=== PATIENT | female | born 1940 | race Two or more races ===

== ENCOUNTER 2020-04-07 19:30 | Emergency (ER) | payer MEDICARE, MEDICAID ==
--- NOTE | 2020-04-07 19:59 | ER Document Report ---
ED Medical Screen (RME) - General Stated Complaint: FATIGUE WITH AMS Time Seen by Provider: 04/07/20 19:59 - HPI Notes: 04/07/20 20:28 79-year-old female with a history of hypertension, diabetes and hypercholesteremia presents to the emergency room via EMS for AMS and fall. Patient states that she fell today and hit her neck and back. Patient is unable to tell me if she lost consciousness at all. EMS did state that she is Covid positive. Patient is denying any chest pain, shortness of breath, nausea, vomiting, diarrhea, abdominal pain. Patient currently is a poor historian as to times when she fell. Patient is a poor historian I have greeted and performed a rapid initial assessment of this patient. A comprehensive ED assessment and evaluation of the patient, analysis of test results and completion of the medical decision making process will be conducted by additional ED providers. PHYSICAL EXAMINATION: GENERAL: Chronically ill, malnourished and in no acute distress. HEAD: Atraumatic, normocephalic. EYES: Pupils equal round extraocular movements intact, conjunctiva are normal. NECK: C-spine tenderness on palpation from C4-C6. CV: s1, s2 regular LUNGS: Diminished breath sounds in lobes The patient was evaluated during a global COVID-19 pandemic and that diagnosis was suspected/considered upon their initial presentation. Their evaluation, treatment and testing was consistent with current guidelines for patients who present with complaints or symptoms and may be related to COVID-19. 04/07/20 20:34 Physical Exam - Vital signs Vitals: Temp Pulse Resp BP Pulse Ox 98.8 F 82 22 H 167/79 H 97 04/07/20 20:08 04/07/20 20:08 04/07/20 20:08 04/07/20 20:08 04/07/20 20:08 Course - Vital Signs Vital signs: Temp Pulse Resp BP Pulse Ox 98.8 F 82 22 H 167/79 H 97 04/07/20 20:08 04/07/20 20:08 04/07/20 20:08 04/07/20 20:08 04/07/20 20:08
--- NOTE | 2020-04-07 20:59 | RADIOLOGY REPORT (SQ) ---
EXAM DESCRIPTION: XR CHEST 1 VIEW COMPLETED DATE/TME: 04/07/2020 20:40 CLINICAL HISTORY: 79 years, Female, COUGH COMPARISON: None. TECHNIQUE: Upright portable chest x-ray FINDINGS: Borderline heart size. Heavily calcified aortic knob. Right upper mediastinal widening probably secondary to brachiocephalic vessels. Outk-gn-uiywkynj hyperinflation.. There is a soft tissue structure projecting the left lower chest medially. Approximately 6 x 4.4 cm. Related to the left breast? Less likely related to the left lateral lung. Otherwise no acute lung or pleural abnormalities. IMPRESSION: 1. Unusual soft tissue structures in the left lower chest possibly related to the breast or the soft tissues and less likely to the lung. Can be evaluated with lateral view. 2. Hyperinflation. Right upper mediastinal widening probably due to great vessels.
--- NOTE | 2020-04-07 21:05 | RADIOLOGY REPORT (SQ) ---
EXAM DESCRIPTION: CT HEAD WITHOUT IV CONTRAST COMPLETED DATE/TME: 04/07/2020 20:46 CLINICAL HISTORY: 79 years, Female, AMS s/p fall today, +neck pain COMPARISON: None. TECHNIQUE: Axial images without IV contrast. Sagittal coronal reconstruction. Images stored on PACS. All CT scanners at this facility use dose modulation, iterative reconstruction, and/or weight based dosing when appropriate to reduce radiation dose to as low as reasonably achievable (ALARA). FINDINGS: Elum-vp-edxjnqmg ventriculomegaly and mild prominence of the cortical sulci. Moderate diffuse periventricular white matter hypodensities in additional multifocal lesions suspicious for old lacunar infarctions. Vascular calcifications. Ectatic distal internal carotid arteries. Paranasal sinuses, mastoid air cells and bony calvarium are unremarkable. IMPRESSION: 1. Relatively advanced periventricular white matter chronic lesions. Probably a central atrophy. Less likely NPH. 2. Ventriculomegaly mildly greater compared to size of the cortical sulci. 3. No acute intracranial findings.
[2020-04-07 21:07] LABS: ABSOLUTE LYMPHOCYTES (AUTO) 0.9 10^3/uL (0.5-4.7); ABSOLUTE MONOCYTES (AUTO) 0.9 10^3/uL (0.1-1.4); ABSOLUTE NEUT (AUTO) 5.6 10^3/uL (1.7-8.2); BASOPHILS % (AUTO) 0.6 % (0-2); EOSINOPHILS % (AUTO) 0.2 % (0-6); HEMATOCRIT 35.7 % (36.0-47.0); HEMOGLOBIN 11.7 g/dL (12.0-15.5); LYMPHOCYTES % (AUTO) 12.7 % (13-45); MEAN CORPUSCULAR HEMOGLOBIN 27.3 pg (27.0-33.4); MEAN CORPUSCULAR HGB CONC 32.7 g/dL (32.0-36.0); MEAN CORPUSCULAR VOLUME 83 fl (80-97); MONOCYTES % (AUTO) 11.7 % (3-13); PLATELET COUNT 266 10^3/uL (150-450); RED BLOOD COUNT 4.28 10^6/uL (3.72-5.28); RED CELL DISTRIBUTION WIDTH 13.3 % (11.5-14.0); SEGMENTED NEUTROPHILS % (AUTO) 74.8 % (42-78); TOTAL CELLS COUNTED % (AUTO) 100 %; WHITE BLOOD COUNT 7.4 10^3/uL (4.0-10.5)
--- NOTE | 2020-04-07 21:11 | RADIOLOGY REPORT (SQ) ---
EXAM DESCRIPTION: CT CERVICAL SPINE WITHOUT IV CONTRAST COMPLETED DATE/TME: 04/07/2020 20:46 CLINICAL HISTORY: 79 years, Female, AMS s/p fall today, +neck pain COMPARISON: None. TECHNIQUE: Axial images without IV contrast. Sagittal coronal reconstruction. Images stored on PACS. All CT scanners at this facility use dose modulation, iterative reconstruction, and/or weight based dosing when appropriate to reduce radiation dose to as low as reasonably achievable (ALARA). FINDINGS: No obvious acute fracture dislocation. No suspicious prevertebral soft tissue swelling. Multiple levels of significant posterior discopathy with posterior osteophyte formation. Inherently wide canal. Moderate central stenosis at C3-4, bxkm-zo-larsomcv at C4-5 C5-C6 on the right and wnub-rr-jcjmzlgu C6-7 centrally. There is unusual of arthrosis at the joint between the left lateral mass of C1 and the left lateral mass of C2. Associated with significant osteophyte formation. Foraminal stenosis at C3-4 bilaterally greater on the left C4-5 bilaterally greater on the right C5-6 and C6-7 on the right. IMPRESSION: 1. Advanced degenerative changes. Multiple levels of central and foraminal stenosis. 2. Unusual degenerative changes involving the left C1-C2 articulation. 3. No obvious acute findings. TECHNICAL DOCUMENTATION: Quality ID # 436: Final reports with documentation of one or more dose reduction techniques (e.g., Automated exposure control, adjustment of the mA and/or kV according to patient size, use of iterative reconstruction technique) copyright 2011 [employer]- All Rights Reserved
[2020-04-07 21:20] LABS: INTERNATIONAL RATION (INR) 0.99; PROTHROMBIN TIME 13.3 SEC (11.4-15.4)
[2020-04-07 21:27] LABS: ALBUMIN 3.7 g/dL (3.5-5.0); ALKALINE PHOSPHATASE 81 U/L (38-126); ANION GAP 7 (5-19); ASPARTATE AMINO TRANSFERASE 26 U/L (14-36); BILIRUBIN,DIRECT 0.1 mg/dL (0.0-0.4); BILIRUBIN,TOTAL 0.8 mg/dL (0.2-1.3); BLOOD UREA NITROGEN 9 mg/dL (7-20); CARBON DIOXIDE 27 mmol/L (22-30); CHLORIDE 98 mmol/L (98-107); GLUCOSE 184 mg/dL (75-110); POTASSIUM 3.7 mmol/L (3.6-5.0); TOTAL PROTEIN 6.9 g/dL (6.3-8.2)
--- NOTE | 2020-04-07 21:29 | ER Document Report ---
ED General - General Stated Complaint: FATIGUE WITH AMS Time Seen by Provider: 04/07/20 19:59 Primary Care Provider: LETY SIERRA PA-C [Primary Care Provider] - Follow up as needed - [facility] Notes: 79-year-old female presents via EMS from home. Per the notes, there is concerned she had altered mental status and fever, she was found to be Covid positive via EMS swab. Patient states that she is here because "they say I have Covid". States that she believes that her daughter also has Covid. Patient reports a cough, no shortness of breath. There is also reference that the patient had a fall today. Patient states that she was attempting to sit down, she missed the seat and fell backwards. She states that she did not lose consciousness. She currently complains of some neck pain. - Related Data Allergies/Adverse Reactions: No Known Allergies Allergy (Unverified 04/07/20 21:53) Past Medical History - General Information source: Patient - Social History Smoking Status: Unknown if Ever Smoked Family History: Reviewed & Not Pertinent Review of Systems - Review of Systems Constitutional: Fever EENT: No symptoms reported Cardiovascular: denies: Chest pain Respiratory: Cough. denies: Short of breath Gastrointestinal: denies: Abdominal pain Genitourinary: No symptoms reported Female Genitourinary: No symptoms reported Musculoskeletal: Neck pain Skin: No symptoms reported Hematologic/Lymphatic: No symptoms reported Neurological/Psychological: denies: Headaches Physical Exam - Vital signs Vitals: BP Pulse Ox 167/79 H 97 04/07/20 19:49 04/07/20 19:49 - General General appearance: Appears well, Alert In distress: None - HEENT Head: Normocephalic, Atraumatic Extraocular movements intact: Yes Pupils: PERRL Neck: Other - No midline tenderness. Full range of motion. - Respiratory Chest status: Nontender Breath sounds: Normal - Cardiovascular Rhythm: Regular Heart sounds: Normal auscultation - Abdominal Tenderness: Nontender - Extremities General upper extremity: Nontender, Normal ROM General lower extremity: Nontender, Normal ROM - Neurological Neuro grossly intact: Yes Speech: Normal Cranial nerves: Normal Motor strength normal: LUE, RUE, LLE, RLE Sensory: Normal Course - Re-evaluation Re-evalutation: 39-year-old female arrives from home via EMS, concerns for fever/altered mental status, positive Covid swab. On exam patient is alert and able to answer questions, she states that she is where she is Covid positive and believe that her daughter is. Other than the cough, she otherwise denies any complaints. She has some neck pain. She has full range of motion of her neck, no midline tenderness. She has no gross focal neuro deficits. Lungs are clear, she is hemodynamically stable and afebrile. Labs and imaging ordered through the triage process. No leukocytosis or left shift. Mild anemia. Electrolytes okay. No elevation of creatinine. LFTs within normal limits. Troponin negative. No consolidation on chest x-ray. Head CT is negative for bleed. C- spine CT is negative for fracture. Do not find any other areas of tenderness on exam. 04/07/20 22:26 Called patient's daughter Radhika who is listed in the emergency contacts. I updated her on positive Covid and reason for EMS transfer today, patient handling Covid infection fairly well. Patient's daughter discusses that patient currently lives in a very unsafe environment. Patient's other daughter is a known drug addict, apparently has been in the ED multiple times for overdoses. Patient's other daughter is unable to care for the patient. There have been multiple instances where the patient has been left alone at home, she has burned herself while cooking, she does not take her medications as prescribed. Patient reportedly refuses to leave the house to go live with Radhika. Avril has filed a DCS/APS case, she has filed with [facility]. On this Radhika was going to go to the patient's primary care doctor to start the paperwork to declare the patient incompetent as this will hopefully be a way to remove patient from the home. Radhika is unable to come get her mother shan because she is a school transportation director and it cannot be exposed to Covid. I discussed with her that currently she does not meet admission criteria for Covid, however we will keep her overnight as a social hold so that social work may see her in the morning to find a safe disposition for this patient. Home medications along with vitamin C/vitamin D/zinc ordered. - Vital Signs Vital signs: Temp Pulse Resp BP Pulse Ox 98.8 F 82 20 160/77 H 96 04/07/20 20:08 04/07/20 20:08 04/07/20 21:00 04/07/20 21:00 04/07/20 21:00 - Laboratory Results Result Diagrams: 04/07/20 20:54 04/07/20 20:54 Laboratory Results Interpreted: 04/07/20 04/07/20 04/07/20 20:54 20:54 22:40 Hgb 11.7 L Hct 35.7 L Lymph % (Auto) 12.7 L Sodium 132.2 L Creatinine 0.45 L Glucose 184 H SARS-CoV-2 Rap RNA(RT-PCR) POSITIVE H Critical Laboratory Results Reviewed: No Critical Results - Radiology Results Critical Radiology Results Reviewed: No Critical Results - EKG Interpretation by Me Additional EKG results interpreted by me: EKG is interpreted by me. Sinus rhythm, rate 80. Narrow QRS, QTC within normal limits. Nonspecific ST changes. No STEMI. Discharge - Discharge Clinical Impression: COVID-19 virus infection, Family discord Disposition: OTHER Referrals: LETY SIERRA PA-C [Primary Care Provider] - Follow up as needed
[2020-04-07] MEDS ORDERED: KETOROLAC TROMETHAMINE INJ/PF 30 MG/1 ML SDV IV ONE (21:46)
--- NOTE | 2020-04-07 23:38 | EKG REPORT ---
SEVERITY:- BORDERLINE ECG - SINUS RHYTHM PROBABLE LEFT ATRIAL ABNORMALITY BORDERLINE T ABNORMALITIES, INFERIOR LEADS : Confirmed by: Vicky Alaniz MD 07-Apr-2020 23:38:11
[2020-04-07] MEDS: PROPRANOLOL HCL 20 MG TABLET PO SCH (23:39)
[2020-04-07] MEDS: ATORVASTATIN CALCIUM 40 MG TABLET PO SCH (23:41)
[2020-04-08] MEDS ORDERED: ACETAMINOPHEN 325 MG TABLET PO PRN (03:48)
[2020-04-08] MEDS: ASPIRIN 81 MG TABLET, ENT COATED PO SCH (11:03)
[2020-04-08] MEDS: AMLODIPINE BESYLATE 5 MG TABLET PO SCH (11:03)
[2020-04-08] MEDS: SITAGLIPTIN PHOSPHATE 50 MG TABLET PO SCH (11:03)
[2020-04-08] MEDS: CHOLECALCIFEROL (D3) 1,000 UNIT (25 MCG) TABLET PO SCH (11:04)
[2020-04-08] MEDS: ASCORBIC ACID 500 MG TABLET PO SCH ×2 (11:04→18:17)
[2020-04-08] MEDS: ZINC SULFATE 220 MG CAPSULE PO SCH (11:04)
--- NOTE | 2020-04-08 13:29 | RADIOLOGY REPORT (SQ) ---
EXAM DESCRIPTION: CHEST SINGLE VIEW IMAGES COMPLETED DATE/TIME: 04/08/2020 1:11 pm REASON FOR STUDY: ams COMPARISON: 04/07/2020. EXAM PARAMETERS: NUMBER OF VIEWS: One view. TECHNIQUE: Single frontal radiographic view of the chest acquired. RADIATION DOSE: NA LIMITATIONS: None. FINDINGS: LUNGS AND PLEURA: No opacities, masses or pneumothorax. No pleural effusion. MEDIASTINUM AND HILAR STRUCTURES: Right paratracheal fullness unchanged. HEART AND VASCULAR STRUCTURES: Heart normal in size. Normal vasculature. BONES: No acute findings. HARDWARE: None in the chest. OTHER: No other significant finding. IMPRESSION: RIGHT PARATRACHEAL FULLNESS, PRESUMABLY DUE TO OVERLAPPING BLOOD VESSELS. NO ACUTE RADI OGRAPHIC FINDING IN THE CHEST. TECHNICAL DOCUMENTATION: JOB ID: [id number] [employer]- All Rights Reserved Reading location - IP/workstation name: [email or web address]
[2020-04-08 14:21] LABS: ARTERIAL BLOOD H2CO3 1.23 mmol/L (1.05-1.35); ARTERIAL BLOOD PCO2 40.7 mmHg (35-45); ARTERIAL BLOOD PH 7.47 (7.35-7.45); ARTERIAL BLOOD PO2 59.8 mmHg (80-100)
[2020-04-08 14:22] LABS: APPEARANCE,URINE CLEAR; BILIRUBIN,URINE NEGATIVE (NEGATIVE); COLOR,URINE YELLOW; GLUCOSE, URINE NEGATIVE (NEGATIVE); KETONES,URINE NEGATIVE (NEGATIVE); LEUKOCYTE ESTERASE,URINE NEGATIVE (NEGATIVE); NITRITE,URINE NEGATIVE (NEGATIVE); PROTEIN,URINE 30 mg/dL (NEGATIVE); URINE SPECIFIC GRAVITY 1.015; UROBILINOGEN,URINE NEGATIVE mg/dL (<2.0)
[2020-04-08 14:22] LABS: ARTERIAL BLOOD BASE EXCESS 4.8 mmol/L; ARTERIAL BLOOD FIO2 ROOM AIR; ARTERIAL BLOOD HCO3 28.8 mmol/L (20-24); ARTERIAL BLOOD O2 SATURATION 92.3 % (94-98); ARTERIAL BLOOD TOTAL CO2 30.1 mmol/L (21-25)
--- NOTE | 2020-04-08 15:06 | RADIOLOGY REPORT (SQ) ---
EXAM DESCRIPTION: MRI HEAD WITHOUT IMAGES COMPLETED DATE/TIME: 04/08/2020 2:45 pm REASON FOR STUDY: ms changes COMPARISON: None. TECHNIQUE: Multiplanar imaging includes non-contrasted T1, T2, FLAIR, and diffusion with ADC map seq uences. Images stored on PACS. LIMITATIONS: Motion artifact. FINDINGS: ANATOMY: No anomalies. Normal vascular flow voids. Pituitary fossa normal. CSF SPACES: Atrophy induced prominence of ventricles and CSF spaces. CEREBRUM: High signal intensity lesions scattered throughout the white matter on FLAIR imaging with d istribution suggesting micro-vascular ischemic changes. No evidence of hemorrhage, mass, or extraaxi al fluid collection. POSTERIOR FOSSA: No signal alteration. No hemorrhage. No edema, masses or mass effect. Internal benjamín tory canals, cerebello-pontine angles, mastoids normal. DIFFUSION IMAGING: Negative for acute or sub-acute infarction. ORBITS: No masses. Globes normal. PARANASAL SINUSES: No fluid levels. Mucosa normal. OTHER: No other significant finding. IMPRESSION: No acute findings. EVIDENCE OF ACUTE STROKE: NO. TECHNICAL DOCUMENTATION: JOB ID: [id number] [employer]- All Rights Reserved Reading location - IP/workstation name: [email or web address]
[2020-04-08 15:18] LABS: URINE AMPHETAMINES SCREEN NEGATIVE; URINE BARBITURATES SCREEN NEGATIVE; URINE BENZODIAZEPINES SCREEN NEGATIVE; URINE COCAINE SCREEN NEGATIVE; URINE MARIJUANA (THC) SCREEN NEGATIVE; URINE METHADONE SCREEN NEGATIVE; URINE PHENCYCLIDINE SCREEN NEGATIVE
--- NOTE | 2020-04-08 16:40 | ER Document Report ---
Doctor's Note Notes: 04/08/20 16:38 Reevaluation of this patient reveals a very sluggish but awakened easily patient. I asked her name and she gave me her full first and last name. I was addressed by Pola ROPER for the social hold and she advised a urinalysis which was done and was actually negative. An MRI and recheck on chest x-ray because of Covid status was done and these were both negative except for some paratracheal congestion. See the contrast of MRI as compared to CT last night. Physical exam HEENT normocephalic atraumatic oral pharyngeal dry mucous membranes. Patient refused to eating any food this morning and I attempted to get her to eat and she was very apathetic about this. I suspect failure to thrive at this time. Neck supple lungs clear to auscultation heart regular rate and rhythm abdomen benign extremities moves all extremities slowly. ALL TERRAIN VEHICLE RACER awake oriented to self and situation. Further evaluation per Pola ROPER as per her note today.
[2020-04-08] MEDS: ATORVASTATIN CALCIUM 40 MG TABLET PO SCH (22:10)
[2020-04-08] MEDS: PROPRANOLOL HCL 20 MG TABLET PO SCH (22:10)
--- NOTE | 2020-04-09 07:01 | ER Document Report ---
Doctor's Note Notes: 04/09/20 06:59 Patient with mild bradycardia and borderline low blood pressure overnight while she was sleeping. Patient had propanolol before she went to bed. Blood pressure now normalized without intervention. Patient currently sleeping comfortably, satting in high 90s without any supplemental oxygen, normal respiratory rate and effort without accessory muscle use, easily rouses from sleep to voice. Turned over to Dr. Crum.
[2020-04-09] MEDS: ASPIRIN 81 MG TABLET, ENT COATED PO SCH (10:00)
[2020-04-09] MEDS: SITAGLIPTIN PHOSPHATE 50 MG TABLET PO SCH (10:00)
[2020-04-09] MEDS: ASCORBIC ACID 500 MG TABLET PO SCH ×2 (10:00→18:57)
[2020-04-09] MEDS: CHOLECALCIFEROL (D3) 1,000 UNIT (25 MCG) TABLET PO SCH (10:00)
[2020-04-09] MEDS: ZINC SULFATE 220 MG CAPSULE PO SCH (10:00)
[2020-04-09] MEDS: AMLODIPINE BESYLATE 5 MG TABLET PO SCH (10:00)
--- NOTE | 2020-04-09 11:39 | ER Document Report ---
Doctor's Note Notes: 04/09/20 11:36 Patient here on social hold because of positive Covid swab and dangers living situation. Chart notes are reviewed. Patient states she has some low back pain overnight but did not tell the nurse about it. She says that she is not moved her bowels in 2 days. No fever or chills. States she is having no trouble breathing at this point. She just does not feel like she has very much energy. Objective: Slender elderly female no acute distress. Vital signs are reviewed. Physical examination reveals scattered faint both bases in both lung wilhelm. No wheezing or rhonchi are heard. Heart has a regular rate and rhythm without murmur rub or gallop. Skin is warm moist good turgor no rashes. Assessment: COVID-19 pneumonia, improving. Failure to thrive. Constipation. Plan: animal services officer will continue working on placement. Make sure the patient has milk of magnesia ordered now and as needed. We will request dietary consultation to determine food preferences and need for supplementation.
[2020-04-09] MEDS ORDERED: MAGNESIUM HYDROXIDE SUSP 30 ML UDCUP PO PRN (11:40)
--- NOTE | 2020-04-09 12:25 | ER Document Report ---
Doctor's Note Notes: 04/09/20 12:23 Pola our social work nurse came and talk to me about this case. The patient evidently wants to go home. Pola has not been able to speak with her directly because of the language barrier (the patient needs to have an online escort patients for complex conversations) and the fact that the case management staff are barred from being raih-ax-qtzk with patient to her Covid positive. We talked about the patient's home situation, which is clearly difficult. Adult Protective Services has evidently declined to get involved because the patient has not been judged incompetent. However, we have ongoing concerns about the patient's safety if she is discharged back into her previous living situation. Her other daughter is beginning the process of seeking guardianship but that may take weeks or months to accomplish. Pola and I asked our mental health team to evaluate the patient to give us an opinion as to whether or not the patient is safe to go home. Formal consultation has been requested. Disposition may be home this afternoon depending on the outcome of that assessment. If the patient is deemed to be unsafe then Pola from social work will move forward with placement planning.
--- NOTE | 2020-04-09 16:13 | PSYCHOLOGICAL NOTE ---
Psych Note - Psych Note Date seen by psych provider: 04/09/20 Time seen by psych provider: 14:45 - 1550 Psych Note: Reason for Consult: Mental Status Patient has been living with daughter for over 10 years and moved to the local area about a year ago at the urging of her other daughter. Patient reports her other daughter is a "gossip" and trying to control everything. She identifies the daughter she lives with helps her with her medications and she helps her daughter; however, she was unable to provided any information on types of medications and names. Patient was able to engage in conversations about her worry that the home she is currently living in with her daughter is too much in rent and would like to move to a small apartment. She feels her monthly expenses are too much when considering rent and food. She disclosed her daughter and she did not want to move here a year ago but that her other daughter insisted and even picked the house they are renting. She continued to disclose they want to move back but it is too expensive and now her other daughter is trying to get her to move in with her and push her daughter she lives with out on the street. She states that she does not want to live with her other daughter; "she yells at me about my showers, saying I take too long and use up the water...she does not even live with us." She confirms the daughter she lives with has medical issue of her own and takes medications that tends to make her sleep most of the day. Patient identifies some worries in connection to her own health and would like to know what to expect. Clinician explained medical team will answer all questions the patient has in regards to medical. Patient is alert and orientated to person, place time and circumstance. Mood is euthymic with congruent affect as evidenced by patient smiling engaging with clinician. Patient denies suicidal and homicidal ideation. Delusions are absent and behaviors congruent with an intact reality based presentation i.e. organized linear thought process. Eye contact was well maintained. Conversational speech was within normal rate, tone and prosody. Clinician notes patient had Abel at bedside in case the need arose for translation however patient's French is very strong and she had no difficulty in communicating her thoughts and feelings. Intellectual abilities appear to be within average range. Attention and concentration is good. Insight, judgment, impulse control is fair. Impression/Plan: Patient is cleared from acute psychiatric services. Patient clearly articulates the desire to continue to live with her daughter that she has lives with for over 10 years. She reports she feels safe and has no concerns for the home environment. There is concern the patient needs more assistance with medications then her daughter can provide (if the daughter also needs human resources office assistant with her medications as reported by the patient). Patient was able to demonstrate problem solving when thinking of ways to compensate for being unsteady on her feet (ie loves to cook, but now she makes sandwiches because it is easier and safer). Patient was able to demonstrate appropriate and reasonable thought processes when discussing finances. At this time it appears the daughter is significant emotion support for the patient, but they would benefit addition assistance in medical assistance such as home health (to address mobility issues reported by patient) and/or blister packs from pharmacy (to help ensure medication compliance). Dr. Laen was consulted on the care and management of this patient; attending physician is in agreement with recommendations and disposition.
--- NOTE | 2020-04-09 19:12 | ER Document Report ---
Doctor's Note Notes: 04/09/20 19:10 Patient was evaluated for safety by mental health. They found no reason to detain her at this time. I spoke directly with Pola Monsivais the sql server developer and discussed the case by phone with Dr. Lane. I then discussed the case with Pola Batres, our egg caser. She discussed the case with the mental health staff and made arrangements for the patient to be evaluated by community linen folder tomorrow to go over medications and determine further needs. Home health services will also be consulted. Patient will be discharged home this evening. She should follow-up with her primary care provider in 3 to 5 days for a posthospitalization visit. She should return to the emergency department if any concerning symptoms develop.
--- NOTE | 2020-04-09 22:04 | ER Document Report ---
Doctor's Note Notes: 04/09/20 22:02 The plan had been made late this afternoon to discharge the patient home this evening. The patient no longer requires hospital level medical care, she is very clearly capable of making her own decisions, and she wishes to go home. However, once the discharge orders were written, family members were contacted refused to miner pick the patient and other family members could not be reached. The nursing staff went so far as to send [facility] to the patient's home only to find that apparently the house was empty no one was home all lights were off the doors were locked. Nursing staff then contacted our hospice case manager Pola at home and she recommended that we place the patient back into her social hold status for tonight and said that she would take care of contacting the family and arranging for the patient to be transported home in the morning. I informed Dr. Mohan, the rock duster MD, that the patient will be placed back in a hold status and will be here overnight. The patient was stable at this time.
[2020-04-09] MEDS: PROPRANOLOL HCL 20 MG TABLET PO SCH (22:55)
[2020-04-09] MEDS: ATORVASTATIN CALCIUM 40 MG TABLET PO SCH (22:56)
[2020-04-10] MEDS: ASCORBIC ACID 500 MG TABLET PO SCH (09:18)
[2020-04-10] MEDS: SITAGLIPTIN PHOSPHATE 50 MG TABLET PO SCH (09:18)
[2020-04-10] MEDS: AMLODIPINE BESYLATE 5 MG TABLET PO SCH (09:18)
[2020-04-10] MEDS: ASPIRIN 81 MG TABLET, ENT COATED PO SCH (09:18)
[2020-04-10] MEDS: ZINC SULFATE 220 MG CAPSULE PO SCH (09:19)
[2020-04-10] MEDS: CHOLECALCIFEROL (D3) 1,000 UNIT (25 MCG) TABLET PO SCH (09:19)
--- NOTE | 2020-04-10 11:19 | ER Document Report ---
Doctor's Note Notes: 04/10/20 11:17 79-year-old female currently on social hold status in our department being seen on routine rounds by me today. Briefly this is a 79-year-old female recently diagnosed with uncomplicated COVID-19 infection who initially had a low-grade fever but ultimately was felt to be medically cleared for discharge home. She normally lives with her daughter. No one has been able to contact the daughter by telephone and a community development technician checked on the residence and found the door locked with no one home. Discharge planning team is still trying to make contact with family for appropriate disposition for this patient. Patient remains comfortable with no new complaints at this time. She is noted to have a few mild wheezes bilaterally on auscultation of the lungs. She does not appear in any respiratory distress. Her vital signs are stable and she is afebrile. She is eating well and getting up and ambulating in the room at this time. We will continue to work with discharge planning team for appropriate disposition.
[2020-04-10 14:19] VITALS: BP 118/54
== END 2020-04-10 14:01 | disposition home or self-care (01) ==
LOC: EDBD → ER 19:30
DX: U07.1 COVID-19 (principal); R53.83 Other fatigue; R41.82 Altered mental status, unspecified; R05 Cough; M54.2 Cervicalgia; R50.9 Fever, unspecified; Z63.8 Other specified problems related to primary support group; W19.XXXA Unspecified fall, initial encounter
CPT/HCPCS: 93005; 99285; 96374; 36415; 82962; 82803; 83605; 84443; 85025; 85610; 0241U ×4; 80053; 81001; 84484; 80307; 71045; 70450; 72125; 93010; A9270 ×24; J1885; C9803; J3490